=== PATIENT | male | born 1980 | race Two or more races ===

== ENCOUNTER 2016-07-10 17:31 | Emergency (ER) | payer OTHER ==
--- NOTE | ~2016-07-10 | CR127 ---
[facility] A Service of [facility] & [facility] RADIOLOGY TEXT RESULTS PATIENT: CL WOLF LOCATION: [place] : [birth year] UNIT #: [id number] AGE: [address]: Nicky Hoyos SEX: M ORDER DR: [id number] [facility] [address] [place], [place] [address] [id number] E MR#: [id number] Acc #: [id number] NAME: CL WOLF : 1980 SEX: M STUDY DATE/TIME: 07/10/2016 18:13 UNIT: [facility] ROOM: STUDY DESCRIPTION: CR Foot Complete Min 3 View Rt Attending Physician: Nicky Hoyos P.A.-C. Ordering Physician: Nicky Hoyos P.A.-C. MEDICAL IMAGING REPORT This report is preliminary unless electronic signature is present EXAM Right foot 3 views, 07/10/2016 HISTORY Foot pain since yesterday. No injury. FINDINGS The tarsal, metatarsal, and phalangeal elements are all anatomically normal in position and alignment. There are no articular defects. No fractures or radiopaque foreign bodies in the soft tissues are apparent. IMPRESSION Normal foot. Dictated by... Gerson Boyd M.D. THIS IS AN ELECTRONICALLY VERIFIED REPORT Gerson Boyd M.D. at 07/12/2016 12:25 PM DFL/vikas TD: 07/11/2016 23:57 JOB #: [id number] MEDICAL IMAGING REPORT COPY
== END 2016-07-10 18:55 | disposition home or self-care (01) ==
LOC: CFTX 17:31
DX: M72.2 Plantar fascial fibromatosis (principal)
CPT/HCPCS: 29405; 29515; 73630; 99283